=== PATIENT | female | born 1995 | race African-American/Black ===

== ENCOUNTER 2019-07-13 11:02 | Emergency (ER) | payer OTHER ==
[~2019-07-13] VITALS: Ht 172.7 cm; Wt 90.0 kg
[2019-07-13 11:30] VITALS: BP 133/81
--- NOTE | 2019-07-13 12:36 | RAD ---
PA and lateral views of the chest. Comparison: None. Indication: Productive cough Findings: The heart size is normal. No pneumothorax or effusion. No air space or interstitial disease. The bony structures are intact. Impression: 1. No acute cardiopulmonary process. Electronically signed by: Jack Gerber MD (07/13/2019 12:34 PM) [id number]
[2019-07-13] MEDS ORDERED: AZIT250T PO (12:45)
--- NOTE | 2019-07-13 12:45 | PHYS DOC ---
Past History Past Medical History: No Pertinent History Past Surgical History: No Surgical History Alcohol Use: None Drug Use: None Adult General Chief Complaint Chief Complaint: COUGH HPI HPI Patient is a 23-year-old female who presents with report of cough for the last couple of days and increased coughing and after 2 mile run. Patient states that initially the sputum was clear to yellow yellow but then she noticed a small tinge of blood mixed in and then coughed up a small blood clot the size of a quarter. She denies having had any fever. She denies any chest pain or shortness of breath. She also denies any lower extremity pain or swelling. Patient denies history or family history of blood clots.[] Review of Systems Review of Systems Constitutional: Denies fever or chills [] Respiratory: Complains of cough without shortness of breath. Patient reports hemoptysis. [] Cardiovascular: No additional information not addressed in HPI [] Integument: Denies rash or skin lesions [] Neurologic: Denies headache, focal weakness or sensory changes [] Allergies Allergies Allergies Coded Allergies Type Severity Reaction Last Updated Verified No Known Drug Allergies 07/13/19 No Physical Exam Physical Exam Constitutional: Well developed, well nourished, no acute distress, non-toxic appearance. [] HENT: Normocephalic, atraumatic, bilateral external ears normal, oropharynx moist, no oral exudates, nose normal. [] Cardiovascular: Regular rate and rhythm[] Lungs & Thorax: Bilateral breath sounds clear to auscultation [] Extremities: No tenderness, no cyanosis, no clubbing, ROM intact, no edema. [] Neurologic: Alert and oriented X 3, no focal deficits noted. [] Current Patient Data Vital Signs Vital Signs Date Time Temp Pulse Resp B/P (MAP) Pulse Ox O2 Delivery O2 Flow Rate FiO2 07/13/19 11:30 97.9 90 18 97 Room Air EKG EKG [] Radiology/Procedures Radiology/Procedures [] Course & Med Decision Making Course & Med Decision Making Pertinent Labs and Imaging studies reviewed. (See chart for details) [] Dragon Disclaimer Dragon Disclaimer This electronic medical record was generated, in whole or in part, using a voice recognition dictation system. Departure Departure: Impression: Primary Impression: Acute bronchitis Additional Impression: Hemoptysis Disposition: 01 HOME, SELF-CARE Condition: STABLE Referrals: PCP,UNKNOWN (PCP) Patient Instructions: Acute Bronchitis, Hemoptysis Scripts Azithromycin (ZITHROMAX) 250 Mg Tablet 1 PKG PO UD for infection, #6 TAB Prov: CIARA THAKKAR Jr. DO 07/13/19 Problem Qualifiers Primary Impression: Acute bronchitis Bronchitis organism: unspecified organism Qualified Codes: J20.9 - Acute bronchitis, unspecified CIARA THAKKAR Jr., DO Jul 13, 2019 12:45
== END 2019-07-13 13:02 | disposition home or self-care (01) ==
LOC: ER 11:02
DX: J20.9 Acute bronchitis, unspecified (principal); R04.2 Hemoptysis
CPT/HCPCS: 71046; 99284

== ENCOUNTER 2020-10-15 16:23 | Emergency (ER) | payer OTHER ==
[~2020-10-15] VITALS: Ht 172.7 cm; Wt 90.0 kg
[~2020-10-15 16:23] MED LIST: AZIT250T PO
[2020-10-15] MEDS ORDERED: ONDANSETRON 4MG ODT 4TABLET STARTPACK. PO ONE (16:44)
[2020-10-15] MEDS ORDERED: ONDANSETRON ODT 4 MG TAB.RAPDIS ONE (16:45)
[2020-10-15] MEDS ORDERED: ONDANSETRON ODT 4 MG TAB.RAPDIS PO ONE (16:45)
--- NOTE | 2020-10-15 16:48 | PHYS DOC ---
Past History Past Medical History: No Pertinent History Past Surgical History: No Surgical History Alcohol Use: Occasionally Drug Use: None Adult General Chief Complaint Chief Complaint: NAUSEA/VOMITING/DIARRHEA HPI HPI Patient is a 25-year-old female here for nausea vomiting diarrhea. Onset of symptoms was approximately 16 hours ago. Reports eating questionable chicken Parmesan that was cooked yesterday evening and woke up approximately 6 to 8 hours after ingestion with nausea, abdominal cramping and had several episodes of nonbloody nonbilious emesis and diarrhea. She stayed home from work as a result. States she is suffered mild headache but this resolved with ibuprofen use. She is otherwise healthy, denies any medical issues or prior abdominal surgeries, no fever. Reports her symptoms have improved since onset 16 hours ago but has yet to eat. She is here for evaluation in order for clearance to go back to work. She has no known sick contacts, no COVID-19 exposure Review of Systems Review of Systems Fourteen body systems of review of systems have been reviewed. See HPI for pertinent positives and negative responses, other martinez all other systems are negative, non-pertinent or non-contributory Allergies Allergies Allergies Coded Allergies Type Severity Reaction Last Updated Verified No Known Drug Allergies 07/13/19 No Physical Exam Physical Exam Constitutional: Well developed, well nourished, no acute distress, non-toxic appearance. HENT: Normocephalic, atraumatic, bilateral external ears normal, oropharynx moist, no oral exudates, nose normal. Eyes: PERRLA, EOMI, conjunctiva normal, no discharge. Neck: Normal range of motion, no tenderness, supple, no stridor. Cardiovascular: Heart rate regular, sinus rhythm, no murmurs rubs or gallops Lungs & Thorax: Bilateral breath sounds clear to auscultation Abdomen: Bowel sounds normal, soft, no tenderness, no masses, no pulsatile masses. Nonsurgical abdomen, no peritoneal signs Skin: Warm, dry, no erythema, no rash. Back: No tenderness, no CVA tenderness. Extremities: No tenderness, no cyanosis, no clubbing, ROM intact, no edema. Neurologic: Alert and oriented X 3, grossly normal motor & sensory function, no focal deficits noted. Psychologic: Affect normal, judgement normal, mood normal. Current Patient Data Vital Signs Vital Signs Date Time Temp Pulse Resp B/P (MAP) Pulse Ox O2 Delivery O2 Flow Rate FiO2 10/15/20 16:34 98.3 17 123/82 (96) 99 EKG EKG [] Radiology/Procedures Radiology/Procedures [] Heart Score C/O Chest Pain: No HEART Score for Chest Pain: HEART Score for Chest Pain Response (Comments) Value History Slighlty/Non-Suspicious 0 Age < 45 0 Risk Factors No Risk Factors 0 Total 0 Risk Factors: Risk Factors: DM, Current or recent (<one month) smoker, HTN, HLP, family history of CAD, obesity. Risk Scores: Risk Factors: DM, Current or recent (<one month) smoker, HTN, HLP, family history of CAD, obesity. Course & Med Decision Making Course & Med Decision Making Hemodynamically stable patient with HPI concerning for gastroenteritis due to questionable chicken Parmesan ingestion yesterday evening. Physical exam nonconcerning. No indication for further diagnostic work-up in ER setting 4 mg ODT Zofran administered with significant relief in nausea, p.o. challenge tolerated. Patient feels that she is ready for departure home requesting a note of excuse all for today and requesting to go back to work tomorrow, at this time I feel this is an appropriate request Strict return precautions were discussed with good understanding by patient, all questions and concerns addressed prior to ER departure Dragon Disclaimer Dragon Disclaimer This electronic medical record was generated, in whole or in part, using a voice recognition dictation system. Departure Departure: Impression: Primary Impression: Nausea, vomiting and diarrhea Disposition: [place] HOME SELF CARE/HOMELESS Condition: STABLE Referrals: PCP,NO (PCP) Patient Instructions: Nausea and Vomiting Additional Instructions: You were seen for nausea, vomit and diarrhea. You most likely have a viral illness which should resolve in the next few days to a week, I suspect questionable chicken Parmesan ingestion yesterday evening as your history of presenting illness is classic for gastroenteritis. You tolerated Zofran which is an antinausea medication well and were able to keep down fluids, I advise you to continue this practice as needed. I advise you to call your primary care physician first thing on Saturday to discuss ER visit today and need for outpatient reevaluation. You should return to the ED if you develop abdominal pain, fever > 100.3, black/bloody stools, black/bloody vomiting, cannot keep water down, or any other new or concerning symptoms. CHEMO MILLAN DO Oct 15, 2020 16:48
[2020-10-15 17:02] VITALS: BP 144/94
== END 2020-10-15 17:00 | disposition home or self-care (01) ==
LOC: ER 16:23
DX: R11.2 Nausea with vomiting, unspecified (principal); R19.7 Diarrhea, unspecified; R10.9 Unspecified abdominal pain; R51.9 Headache, unspecified
CPT/HCPCS: 99283; Q0162

== ENCOUNTER 2020-12-12 05:15 | Emergency (ER) | payer OTHER ==
[~2020-12-12] VITALS: Ht 172.7 cm; Wt 90.9 kg
[2020-12-12 05:15] VITALS: BP 134/84
--- NOTE | 2020-12-12 05:18 | PHYS DOC ---
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 Patient up-to-date with vaccinations. Has not completed Covid vaccinations. Patient works as a cook at [employer]. No recent travel outside the [place] area. Recently moved to the area from [place] this year. Patient denies recent travel. Patient denies any specific ill contacts. Patient denies any history immunosuppression. Patient normally healthy. Review of Systems: Review of Systems: Constitutional: Denies fever or chills Eyes: Denies change in visual acuity HENT: Complains of nasal congestion, sore throat and bilateral ear pain Respiratory: Denies cough or shortness of breath Cardiovascular: Denies chest pain or edema GI: Denies abdominal pain, nausea, vomiting, bloody stools or diarrhea : Denies dysuria Musculoskeletal: Denies back pain or joint pain Integument: Denies rash Neurologic: Denies headache, focal weakness or sensory changes Endocrine: Denies polyuria or polydipsia Lymphatic: Denies swollen glands Psychiatric: Denies depression or anxiety Family History: Family History: Noncontributory presentation Current Medications: Current Meds: See nursing for home meds Allergies: Allergies: Allergies Coded Allergies Type Severity Reaction Last Updated Verified No Known Drug Allergies 07/13/19 No Physical Exam: PE: Constitutional: Well developed, well nourished, moderate acute distress, non-to xic appearance. [] HENT: Normocephalic, atraumatic, bilateral external ears have excoriations from attempts to clean wax, oropharynx moist, postnasal drainage, injected pharynx, no oral exudates, nose swollen turbinates and clear rhinorrhea Eyes: PERRLA, EOMI, conjunctiva mild injection, no discharge. [] Neck: Normal range of motion, no tenderness, supple, no stridor. [] Cardiovascular:Heart rate regular rhythm, no murmur [] Lungs & Thorax: Bilateral breath sounds equal apex with few scattered wheezes on auscultation [] Abdomen: Bowel sounds normal, soft, no tenderness, no masses, no pulsatile masses. [] Skin: Warm, dry, no erythema, no rash. [] Back: No tenderness, no CVA tenderness. [] Extremities: No tenderness, no cyanosis, no clubbing, ROM intact, no edema. [] Neurologic: Alert and oriented X 3, normal motor function, normal sensory function, no focal deficits noted. [] Psychologic: Affect anxious, judgement normal, mood normal. [] EKG: EKG: [] Radiology/Procedures: Radiology/Procedures: [] Heart Score: C/O Chest Pain: N/A Risk Factors: Risk Factors: DM, Current or recent (<one month) smoker, HTN, HLP, family history of CAD, obesity. Risk Scores: Score 0 - 3: 2.5% MACE over next 6 weeks - Discharge Home Score 4 - 6: 20.3% MACE over next 6 weeks - Admit for Clinical Observation Score 7 - 10: 72.7% MACE over next 6 weeks - Early Invasive Strategies Course & Med Decision Making: Course & Med Decision Making Pertinent Labs and Imaging studies reviewed. (See chart for details) Take Tylenol and ibuprofen as needed for discomfort. Gargle with Listerine 4 times a day. Push fluids. Consider Benadryl 25 to 50 mg with 4 times a day. Push fluids. Consider rapid Covid testing at [facility] or [facility] Would self isolate. Use Flonase 2 sprays per naris at night. Normal saline nasal rinses. Would self isolate until results of a negative Covid testing. Avoid using instruments to clean ears. Use Cortisporin eardrops to both ears 4 times a day. After over this acute presentation consider using Debrox and Cerumenex weekly to avoid increased wax accumulation. Return if any concerns. Impression: 1. Viral syndrome 2. Viral pharyngitis-(strep test was negative) 3. Bilateral [id number] to canal from attempts to extract wax. ). [] Dragon Disclaimer: Allaon Disclaimer: This electronic medical record was generated, in whole or in part, using a voice recognition dictation system. Departure Departure: Referrals: PCP,NO (PCP) Beata Disclaimer This chart was dictated in whole or in part using Voice Recognition software in a busy, high-work load, and often noisy Emergency Department environment. It may contain unintended and wholly unrecognized errors or omissions. ANGEL RAMIREZ MD December 12, 2020 05:18
[2020-12-12] MEDS: NEOMYCIN/POLYMYXIN/HC OTIC SUSPENSION 10ML BOTTLE. AU ONE (05:45)
[2020-12-12] MEDS: ACETAMINOPHEN 500 MG TABLET PO ONE (05:45)
[2020-12-12] MEDS: predniSONE 10 MG TABLET PO ONE (05:45)
== END 2020-12-12 06:05 | disposition home or self-care (01) ==
LOC: ER 05:15
DX: S00.412A Abrasion of left ear, initial encounter (principal); S00.411A Abrasion of right ear, initial encounter; B34.9 Viral infection, unspecified; J02.8 Acute pharyngitis due to other specified organisms; X58.XXXA Exposure to other specified factors, initial encounter; Y93.89 Activity, other specified; Y92.89 Other specified places as the place of occurrence of the external cause; Y99.8 Other external cause status
CPT/HCPCS: 87070; 87880; 99284; J7512

== ENCOUNTER 2021-02-25 13:31 | Emergency (ER) | payer OTHER ==
[~2021-02-25] VITALS: Ht 172.7 cm; Wt 100.6 kg
[2021-02-25 13:33] VITALS: BP 102/79
[2021-02-25] MEDS ORDERED: BENZ100C PO (14:49)
[2021-02-25] MEDS ORDERED: ONDA4TAB12 PO (14:49)
--- NOTE | 2021-02-25 14:49 | PHYS DOC ---
Past History Past Medical History: No Pertinent History (MAKSIM MCLEOD APRN) Past Surgical History: No Surgical History (MAKSIM MCLEOD APRN) Alcohol Use: None Drug Use: None (MAKSIM MCLEOD APRN) Adult General Chief Complaint Chief Complaint: COUGH HPI HPI Patient is a 25-year-old female presents to the emergency department complaining of cough with nausea since mehrdad the COVID-19 virus which he tested positive this past Saturday. Patient reports she would like medications to help with her cough and nausea while she goes to the COVID-19 virus infection. Patient states that she is unable to take her pain medications at home because she becomes nauseated and throws up. Patient denies any other physical complaints or physical concerns. (MAKSIM MCLEOD APRN) Review of Systems Review of Systems 14 body systems of review of systems have been reviewed. See HPI for pertinent positives and negative responses, otherwise all other systems are negative, nonpertinent or noncontributory. Constitutional: Negative except as outlined in HPI above. Skin: Negative except as outlined in HPI above. Eyes: Negative except as outlined in HPI above. HENT: Negative except as outlined in HPI above. Respiratory: Negative except as outlined in HPI above. Cardiovascular: Negative except as outlined in HPI above. GI: Negative except as outlined in HPI above. : Negative except as outlined in HPI above. Musculoskeletal: Negative except as outlined in HPI above. Integument: Negative except as outlined in HPI above. Neurologic: Negative except as outlined in HPI above. Endocrine: Negative except as outlined in HPI above. Lymphatic: Negative except as outlined in HPI above. Psychiatric: Negative except as outlined in HPI above. (MAKSIM MCLEOD APRN) Allergies Allergies Allergies Coded Allergies Type Severity Reaction Last Updated Verified No Known Drug Allergies 07/13/19 No (MAKSIM MCLEOD APRN) Physical Exam Physical Exam Constitutional: Well developed, well nourished, no acute distress, non-toxic appearance. 25-year-old female in no apparent distress. HENT: Normocephalic, atraumatic. Eyes: Conjunctiva normal, no discharge. Neck: Normal range of motion, no stridor. Cardiovascular: No cyanosis appreciated, distal cap refill less than 2 seconds. Lungs & Thorax: Patient is in no respiratory distress, no audible adventitious lung sounds appreciated. Abdomen: Nontender, no abnormalities noted. Skin: Warm, dry, no erythema, no rash. Back: No tenderness, no deformities. Extremities: No tenderness, no cyanosis, no clubbing, ROM intact, no edema. Neurologic: Alert and oriented X 3, normal motor function, normal sensory function, no focal deficits noted. Psychologic: Affect normal, judgement normal, mood normal. (MAKSIM MCLEOD APRN) EKG EKG [] (MAKSIM MCLEOD APRN) Radiology/Procedures Radiology/Procedures [] (MAKSIM MCLEDO APRN) Heart Score C/O Chest Pain: No Risk Factors: Risk Factors: DM, Current or recent (<one month) smoker, HTN, HLP, family history of CAD, obesity. Risk Scores: Risk Factors: DM, Current or recent (<one month) smoker, HTN, HLP, family history of CAD, obesity. (MAKSIM MCLEOD APRN) Course & Med Decision Making Course & Med Decision Making Pertinent Labs and Imaging studies reviewed. (See chart for details) 25-year-old female, vital signs reviewed, presents to the emergency department with a chief complaint of cough, nausea since mehrdad the COVID-19 virus infection which she tested positive with this past Saturday. Patient's physical examination unremarkable. Discussed with patient we will prescribe Tessalon Perles for cough, ondansetron orally dissolving tablet for nausea, continue her COVID-19 virus isolation and social distancing. Patient is amendable to ED plan and ED discharge planning. Discussed with the patient all findings and diagnostic testing as well as the need to follow-up with their primary care provider for further evaluation and treatment or return to the ED if any new or worsening symptoms. Strict return precautions were also discussed at length, the patient voiced understanding and agreement with the discharge planning. The patient was nontoxic in appearance, in no apparent distress, and hemodynamically stable at the time of disposition. (MAKSIM MCLEOD APRN) Dragon Disclaimer Dragon Disclaimer This electronic medical record was generated, in whole or in part, using a voice recognition dictation system. (MAKSIM MCLEOD APRN) Attending Co-Sign The patient was seen and interviewed as well as examined at the bedside. The chart was reviewed. The case was discussed. Agree with the plan of care. (MENDEZ,HARJEET DO) Departure Departure: Impression: Primary Impression: Cough Additional Impressions: Nausea COVID-19 virus infection Disposition: 01 HOME / SELF CARE / HOMELESS Condition: STABLE Referrals: KAMRAN OCONNELL DO, MPH (PCP) Additional Instructions: You were seen today in the emergency department for cough, and nausea associated with your COVID-19 virus infection. As we discussed, I am prescribing you Tessalon Perle for cough, and Zofran ODT for nausea. Please use as directed. I suspect your symptoms may linger on for several weeks if not longer. Please follow-up with your primary care for ongoing symptoms. Thank you for visiting our Emergency Department. It was a pleasure taking care of you today in the emergency department and we appreciate you trusting us with your care. If any additional problems come up don't hesitate to return to visit us. Please follow up with your primary care provider so they can plan additional care if needed and know about the problem that you had. If symptoms worsen come back to the [facility] Department. Any concerning symptoms that start such as chest pain, shortness of air, weakness or numbness on one side of the body, running high fevers or any other concerning symptoms return to the ER. You have been tested for or diagnosed with COVID-19. It is an infection caused by a new type of coronavirus. COVID-19 will cause cold-like or mild flu symptoms in most. It can cause more severe symptoms like problems breathing in some. There is no treatment for COVID-19. The body will clear the infection over time. Self-care will help to ease discomfort. Steps to Take: Self-Care Rest as needed. Healthy habits may help you feel better. Steps include: Choose healthy foods including fruits and vegetables. Drink water throughout the day. Get plenty of sleep each night. If you smoke, try to quit. It may ease breathing. Avoid alcohol. Keep Others Healthy The virus can spread to others. Droplets are released every time you sneeze or cough. The droplets can get into the mouth, nose, or eyes of people near you and lead to infection. To lower the chances of spreading COVID-19 to others: Stay at home until your doctor has said it is safe to leave. If you tested positive this will mean staying isolated until both of the following are true: At least 7 days have passed since the start of illness. You are free of fever for at least 72 hours without the use of medicine. During this time: - Avoid public areas, events, or transportation. Do not return to work or school until your doctor has said it is safe to do so. - Call ahead if you need to go to a medical center. Let them know you may have COVID-19. It will help them guide you where to go. They may also ask you to wear a facemask when you come to the office. - If you call for emergency medical services, let them know you may have COVID- 19. While at home: - Try to avoid close contact with others. Stay about 6 feet away. - If possible, spend most of your time in a separate room from others. - Use a face mask if you will be in close contact with others such as sharing a room or vehicle. - Have someone wipe down common surfaces in the home. Use household banquet stewardess every day on areas like doorknobs, counters, or sinks. - Cough or sneeze into a tissue. Throw the tissue away right after use. If a tissue is not available, cough or sneeze into your elbow. - Wash your hands often. Wash them after sneezing or coughing. Use soap and water and wash for at least 20 seconds. Alcohol based hand dumper mold cleaner can be used if soap and water is not available. - Do not prepare food for others. Avoid sharing personal items like forks, spoons, or toothbrushes. - Avoid close contact with pets while you are sick. There is no evidence of the virus passing to pets. This is a safety step until more is known about this virus. Isolation can be frustrating. Social interaction can help. Keep in touch with friends and family through phone and tech options. You can still interact with others in your home, just keep a safe distance of about 6 feet. Follow-up: Your doctors office will check in with you to see if there are any changes in your health. You may be asked to keep track of symptoms to share with them. They will also let you know when you are clear to be in public again. Problems to Look Out For: Contact your doctor if your recovery is not going as you expect. Get emergency care if you have problems such as: - Trouble breathing - Nonstop chest pain or pressure - Changes in awareness, confusion, or problems waking - Lips or face have bluish color - Worsening of symptoms If you think you have an emergency, call for emergency medical services right away. As taken [place] [facility] [place] [facility] Scripts Ondansetron (ONDANSETRON ODT) 4 Mg Tab.rapdis 1 TAB PO PRN Q6-8HRS for nausea, #16 TAB 0 Refills Prov: MAKSIM MCLEOD APRN 02/25/21 Benzonatate (TESSALON PERLE) 100 Mg Capsule 1 CAP PO TID for cough, #10 CAP 0 Refills Prov: MAKSIM MCLEOD APRN 02/25/21 Problem Qualifiers MAKSIM MCLEOD APRN Feb 25, 2021 14:49 HARJEET MENDEZ DO Feb 26, 2021 06:28
== END 2021-02-25 14:55 | disposition home or self-care (01) ==
LOC: ER 13:31
DX: U07.1 COVID-19 (principal)
CPT/HCPCS: 99283